=== PATIENT | male | born 1980 | race Caucasian/White ===

== ENCOUNTER 2024-10-16 03:37 | Emergency (ER) | payer SELFPAY ==
[~2024-10-16] VITALS: Ht 182.9 cm; Wt 148.9 kg
[2024-10-16 03:49] VITALS: BP 155/94; RESP 18; TEMP 98.3; O2SAT 97
[2024-10-16 04:10] VITALS: PULSE 104; O2SAT 99
== END 2024-10-16 05:17 | disposition left against medical advice (07) ==
LOC: ER 03:37
DX: M54.2 Cervicalgia (principal); Z53.21 Procedure and treatment not carried out due to patient leaving prior to being seen by health care provider